=== PATIENT | female | born 1980 | race Caucasian/White ===

== ENCOUNTER 2016-09-04 05:59 | Emergency (ER) | payer OTHER ==
[~2016-09-04] VITALS: Ht 162.6 cm; Wt 74.8 kg
--- NOTE | 2016-09-04 06:05 | ED GI/GU/ABDOMINAL COMPLAINT ---
History of Present Illness General Chief Complaint: Abdominal Pain/Flank Pain Stated Complaint: BIBA PT C/O ABD PAIN Source: patient, EMS Exam Limitations: no limitations Vital Signs & Intake/Output Vital Signs & Intake/Output Vital Signs Date Time Temp Pulse Resp B/P B/P Pulse O2 O2 Flow FiO2 Mean Ox Delivery Rate 09/04 0603 97.8 87 20 100 Room Air Triage Nurses Notes Reviewed? yes ? n Is pt currently ? No Onset: Abrupt Duration: hour(s): Timing: single episode today Quality/Severity: sharpness, throbbing Location: left flank Radiation: LLQ Activities at Onset: sleep Prior Abdominal Problems: none Modifying Factors: Worsens With: urinating. Associated Symptoms: abdominal pain, nausea/vomiting HPI: 35 yo old woman, h/o kidney stones, presents with left sided flank pain. "It woke me up from sleep... It was so sharp... It felt like contractions.... and then all of a sudden the pain completely resolved when I arrived in the emergency room." She notes that her sister has kidney stones. She has no nausea, vomiting, diarrhea, vaginal discharge. She is otherwise well. Past History Medical History Any Pertinent Medical History? see below for history Surgical History Surgical History: none Family History Hx Contributory? No Review of Systems Review of Systems Constitutional: Reports: no symptoms. EENTM: Reports: no symptoms. Respiratory: Reports: no symptoms. Cardiovascular: Reports: no symptoms. GI: Reports: no symptoms. Genitourinary: Reports: no symptoms. Musculoskeletal: Reports: no symptoms. Skin: Reports: no symptoms. Neurological/Psychological: Reports: no symptoms. Hematologic/Endocrine: Reports: no symptoms. Immunologic/Allergic: Reports: no symptoms. All Other Systems: Reviewed and Negative Physical Exam Physical Exam General Appearance: well developed/nourished, mild distress Head: atraumatic, normal appearance Eyes: Bilateral: normal appearance. Ears, Nose, Throat, Mouth: hearing grossly normal Neck: normal inspection, supple, full range of motion, normal alignment Respiratory: normal breath sounds, chest non-tender, no respiratory distress, quiet respiration, lungs clear Cardiovascular: regular rate/rhythm Gastrointestinal: normal bowel sounds, soft, non-tender, no organomegaly Back: normal inspection, normal range of motion Extremities: normal range of motion Neurologic/Psych: no motor/sensory deficits, awake, alert, oriented x 3 Skin: intact, normal color, warm/dry Core Measures ACS in differential dx? No Severe Sepsis Present: No Septic Shock Present: No Progress Differential Diagnosis: kidney stone, UTI/pyelo Plan of Care: Orders Procedure Date/time Status URINALYSIS 09/04 604 Complete LIPASE 09/04 604 Complete HEPATIC FUNCTION PANEL 09/04 604 Complete HUMAN BETA HCG SCREEN 09/04 604 Complete CBC WITHOUT DIFFERENTIAL 09/04 604 Complete BASIC METABOLIC PANEL 09/04 604 Complete AMYLASE 09/04 604 Complete Laboratory Tests 09/04/16 0635: Anion Gap 15, Estimated GFR > 60, BUN/Creatinine Ratio 28.8 H, Glucose 115 H, Calcium 9.5, Total Bilirubin 0.7, Direct Bilirubin 0.2, AST 22, ALT 37, Alkaline Phosphatase 108, Total Protein 7.8, Albumin 4.9, Amylase 46, Lipase 128, Total Beta HCG NEGATIVE, CBC w Diff NO MAN DIFF REQ, RBC 4.86, MCV 90.1, MCH 30.1, RDW 13.1, MPV 7.8, Gran % 61.2, Lymphocytes % 27.6, Monocytes % 7.7, Eosinophils % 3.0, Basophils % 0.5, Absolute Granulocytes 5.2, Absolute Lymphocytes 2.3, Absolute Monocytes 0.7 H, Absolute Eosinophils 0.3, Absolute Basophils 0, PUBS MCHC 33.4 09/04/16 0610: Urine Color YEL, Urine Clarity HAZY H, Urine pH 7.0, Ur Specific Surveyor 1.020, Urine Protein TRACE H, Urine Ketones NEG, Urine Nitrite NEG, Urine Bilirubin NEG, Urine Urobilinogen 0.2, Ur Leukocyte Esterase NEG, Ur Microscopic SEDIMENT EXAMINED, Urine RBC 1-3, Urine WBC RARE, Ur Epithelial Cells PACKD H, Urine Bacteria MANY H, Urine Mucus RARE, Urine Hemoglobin NEG, Urine Glucose NEG Initial ED EKG: none Departure Departure Disposition: HOME OR SELF CARE Condition: Stable Clinical Impression Primary Impression: Renal colic on left side Secondary Impressions: Abdominal pain Referrals: SCOOBY FERRERA Departure Forms: Customer Survey General Discharge Information Comments well appearing in ED... discussed at length... pt to return if her symptoms recur.
[2016-09-04 06:41] LABS: ABSOLUTE BASOPHIL COUNT 0 /CUMM (0.0-0.2); ABSOLUTE EOSINOPHIL COUNT 0.3 /CUMM (0.0-0.7); ABSOLUTE GRANULOCYTE CT 5.2 /CUMM (1.4-6.5); ABSOLUTE LYMPH COUNT 2.3 /CUMM (1.2-3.4); ABSOLUTE MONOCYTE COUNT 0.7 /CUMM (0.10-0.60); BASOPHIL % 0.5 % (0.0-2.0); GRANULOCYTE % 61.2 % (42.2-75.2); HEMATOCRIT 43.8 % (37-47); MEAN CORPUSCULAR HGB 30.1 PG (27.0-31.0); MEAN CORPUSCULAR HGB CONC 33.4 G/DL (33.0-37.0); MEAN CORPUSCULAR VOLUME 90.1 FL (81.0-99.0); MEAN PLATELET VOLUME 7.8 FL (7.4-10.4); PLATELET COUNT 307 /CUMM (130-400); RBC DISTRIBUTION WIDTH 13.1 % (11.5-14.5); RED BLOOD CELL CT 4.86 /CUMM (4.20-5.40); WHITE BLOOD CELL COUNT 8.5 /CUMM (4.8-10.8)
[2016-09-04 07:32] VITALS: BP 111/72
== END 2016-09-04 07:33 ==
LOC: ERH 05:59
PROVIDERS: Pediatrics
DX: N23 Unspecified renal colic (principal); R10.32 Left lower quadrant pain
CPT/HCPCS: 81001